=== PATIENT | male | born 1995 | race Hispanic/Latino ===

== ENCOUNTER 2022-10-30 09:18 | Emergency (ER) | payer SELFPAY ==
--- OUTSIDE RECORDS SUMMARY | 2022-10-30 09:27 | XMS REPORT | Continuity of Care Document ---
:1995 Author Organization [facility] t Address [address] [place] [address] [place] [id number] Care Team Providers Name Role Phone Unavailable Unavailable Unavailable Problems This patient has no known problems. Allergies, Adverse Reactions, Alerts This patient has no known allergies or adverse reactions. Medications This patient has no known medications. Procedures This patient has no known procedures. Encounters Start End Encounter Admission Attending Care Care Encounter Source Date/Time Date/Time Type Type Clinicians Facility Department ID 2022-10-07 2022-10-07 Outpatient [facility] [id number] 10:27:04 10:27:04 [id number] Results This patient has no known results.
--- NOTE | 2022-10-30 10:09 | RAD REPORT ---
EXAM DESCRIPTION: RAD - Foot Right 3 View - 10/30/2022 9:51 am CLINICAL HISTORY: PAIN COMPARISON: No comparisons FINDINGS/IMPRESSION: No acute fracture. No malalignment. No significant focal degenerative changes.
--- NOTE | 2022-10-30 10:45 | EDPHYS ---
Physician Documentation [facility] Name: Matthieu Blair Age: 27 yrs Sex: Male : 1995 Arrival Date: 10/30/2022 Time: 09:18 Bed 12 Private MD: ED Physician Nancy Lee HPI: 10/30 10:39 This 27 yrs old Male presents to ER via Ambulatory with complaints of Foot kb Pain - right. 10:40 The patient presents with pain, that is acute. The complaints affect the right foot. kb Context: The problem was sustained at home, resulted from an unknown cause, the patient can fully bear weight, the patient is able to ambulate. Onset: The symptoms/episode began/occurred 6 day(s) ago. Modifying factors: The symptoms are alleviated by nothing, the symptoms are aggravated by weight bearing. Associated signs and symptoms: The patient has no apparent associated signs or symptoms. Severity of symptoms: At their worst the symptoms were moderate, in the emergency department the symptoms are unchanged. The patient has not experienced similar symptoms in the past. The patient has not recently seen a physician. Historical: - Allergies: 09:36 Hydrocodone-Acetaminophen; iw 09:36 Rocephin; iw - Home Meds: 09:36 None [Active]; iw - PMHx: 09:36 None; iw - PSHx: 09:36 Appendectomy; Tonsillectomy; iw 09:37 fistula repair; iw - Social history:: Smoking status: . ROS: 10:38 Constitutional: Negative for fever, chills, and weight loss. kb 10:38 MS/extremity: Positive for pain, of the dorsum of right foot. 10:38 All other systems are negative. Exam: 10:38 Constitutional: This is a well developed, well nourished patient who is awake, alert, kb and in no acute distress. Head/Face: Normocephalic, atraumatic. ENT: Moist Mucous membranes Cardiovascular: Regular rate and rhythm with a normal S1 and S2. No gallops, murmurs, or rubs. No pulse deficits. Respiratory: Respirations even and unlabored. No increased work of breathing. Talking in full sentences Skin: Warm, dry with normal turgor. Normal color. MS/ Extremity: Pulses equal, no cyanosis. Neurovascular intact. Full, normal range of motion. Neuro: Awake and alert, GCS 15, oriented to person, place, time, and situation. Moves all extremities. Normal gait. Vital Signs: 09:35 BP 126 / 95; Pulse 64; Resp 16; Temp 98.1; Pulse Ox 97% on R/A; Weight 106.59 kg; iw Height 6 ft. 3 in. ; Pain 6/10; 09:35 Body Mass Index 29.37 (106.59 kg, 190.5 cm) iw 09:35 Pain Scale: Adult iw MDM: 09:32 Patient medically screened. kb 10:39 Differential diagnosis: closed fracture, tendonitis. Data reviewed: vital signs, nurses kb notes. 10:43 Counseling: I had a detailed discussion with the patient and/or guardian regarding the kb historical points, exam findings, and any diagnostic results supporting the discharge/admit diagnosis, radiology results, the need for outpatient follow up, a family practitioner, to return to the emergency department if symptoms worsen or persist or if there are any questions or concerns that arise at home. 10/30 09:37 Order name: Foot Right 3 View XRAY; Complete Time: 10:15 kb Administered Medications: No medications were administered Disposition Summary: 10/30/22 10:44 Discharge Ordered Location: Home kb Condition: Stable kb Diagnosis - Pain in right foot kb Followup: kb - With: Emergency Department - When: As needed - Reason: Worsening of condition Followup: kb - With: Private Physician - When: 2 - 3 days - Reason: Recheck today's complaints, Continuance of care, Re-evaluation by your physician Discharge Instructions: - Discharge Summary Sheet kb - Musculoskeletal Pain kb Forms: - Medication Reconciliation Form kb - Thank You Letter kb - Antibiotic Education kb - Prescription Opioid Use kb - Patient Portal Instructions kb - Leadership Thank You Letter kb Prescriptions: - Diclofenac Sodium 75 mg Oral tablet,delayed release (DR/EC) - take 1 tablet by ORAL route 2 times per day As needed; 30 tablet; Refills: 0, kb Product Selection Permitted Signatures: Dispatcher [employer] Siria Kelly, EDMUND HINES-Deborah Schwartz, RN RN iw Corrections: (The following items were deleted from the chart) 09:37 09:36 PMHx: Unable to Obtain; iw iw
--- NOTE | 2022-10-30 10:45 | ER ---
Nurse's Notes [facility] Name: Matthieu Blair Age: 27 yrs Sex: Male : 1995 Arrival Date: 10/30/2022 Time: 09:18 Bed 12 Private MD: Diagnosis: Pain in right foot Presentation: 10/30 09:35 Chief complaint: Patient states: pain on top of right foot since Monday, did not injure iw it. Coronavirus screen: At this time, the client does not indicate any symptoms associated with coronavirus-19. Ebola Screen: Patient negative for fever greater than or equal to 101.5 degrees Fahrenheit, and additional compatible Ebola Virus Disease symptoms Patient denies exposure to infectious person. Patient denies travel to an Ebola-affected area in the 21 days before illness onset. No symptoms or risks identified at this time. Initial Sepsis Screen: Does the patient meet any 2 criteria? No. Patient's initial sepsis screen is negative. Does the patient have a suspected source of infection? No. Patient's initial sepsis screen is negative. Risk Assessment: Do you want to hurt yourself or someone else? Patient reports no desire to harm self or others. Onset of symptoms was October 24, 2022. 09:35 Method Of Arrival: Ambulatory iw 09:35 Acuity: JUANA 4 iw Triage Assessment: 11:00 General: Appears in no apparent distress. Behavior is calm, cooperative. iw Historical: - Allergies: 09:36 Hydrocodone-Acetaminophen; iw 09:36 Rocephin; iw - Home Meds: 09:36 None [Active]; iw - PMHx: 09:36 None; iw - PSHx: 09:36 Appendectomy; Tonsillectomy; iw 09:37 fistula repair; iw - Social history:: Smoking status: . Screenin:48 [facility] ED Fall Risk Assessment (Adult) Score/Fall Risk Level 0 - 2 = Low Risk. Abuse iw screen: Denies threats or abuse. Denies injuries from another. Nutritional screening: No deficits noted. Tuberculosis screening: No symptoms or risk factors identified. Assessment: 11:00 General: Appears in no apparent distress. Behavior is calm, cooperative. Pain: iw Complains of pain in dorsum of right foot. Neuro: Level of Consciousness is awake, alert, obeys commands, Oriented to person, place, time, situation, Moves all extremities. Cardiovascular: Patient's skin is warm and dry. Respiratory: Respiratory effort is even, unlabored, Respiratory pattern is regular, symmetrical. Vital Signs: 09:35 BP 126 / 95; Pulse 64; Resp 16; Temp 98.1; Pulse Ox 97% on R/A; Weight 106.59 kg; iw Height 6 ft. 3 in. ; Pain 6/10; 09:35 Body Mass Index 29.37 (106.59 kg, 190.5 cm) iw 09:35 Pain Scale: Adult iw ED Course: 09:21 Patient arrived in ED. im 09:32 Siria Weems FNP-C is PHCP. kb 09:32 Nancy Lee MD is Attending Physician. kb 09:36 Triage completed. iw 09:37 Arm band placed on. iw 09:53 Foot Right 3 View XRAY In Process Unspecified. EDMS 11:00 Patient has correct armband on for positive identification. iw 11:48 No provider procedures requiring assistance completed. Patient did not have IV access iw during this emergency room visit. 11:49 Deborah Mcbride, RN is Primary Nurse. iw Administered Medications: No medications were administered Medication: 11:00 VIS not applicable for this client. iw Outcome: 10:44 Discharge ordered by MD. kb 11:48 Discharged to home ambulatory. iw 11:48 Condition: good 11:48 Discharge instructions given to patient, Instructed on discharge instructions, follow up and referral plans. medication usage, Demonstrated understanding of instructions, follow-up care, medications, Prescriptions given X 1. 11:49 Patient left the ED. iw Signatures: Dispatcher [employer] EDOH Siria Weems FNP-C FNP-Ckb Williams, Irene, RN RN iw Thalia Jansen im Corrections: (The following items were deleted from the chart) 09:37 09:36 PMHx: Unable to Obtain; iw iw
[2022-10-30 11:56] VITALS: BP 126/95; TEMP 98.1; O2SAT 97
== END 2022-10-30 11:49 | disposition home or self-care (01) ==
LOC: ER 09:18
DX: M79.671 Pain in right foot (principal); Z88.3 Allergy status to other anti-infective agents; Z88.5 Allergy status to narcotic agent
CPT/HCPCS: 99283